=== PATIENT | female | born 1980 | race Caucasian/White ===

== ENCOUNTER → 2020-10-02 | Outpatient (CLI) | payer OTHER ==
--- NOTE | 2020-10-07 02:11 | ECWPNPC ---
PATIENT NAME: YULISA DUQUE : 1980 GENDER: FEMALE VISIT DATE: 10/02/2020 DISCHARGE DATE: 10/02/20 1600 VISIT LOCKED DATE TIME: PHYSICIAN: LIEN SMITH MD RESOURCE: LIEN SMITH MD REASON FOR APPOINTMENT 1. PRESEDATE FOR SPINAL TAP HISTORY OF PRESENT ILLNESS DEPRESSION SCREENING: PHQ-2 (2015 EDITION) LITTLE INTEREST OR PLEASURE IN DOING THINGS?NOT AT ALL FEELING DOWN, DEPRESSED, OR HOPELESS?NOT AT ALL TOTAL SCORE0 GENERAL: 40-YEAR-OLD FEMALE PATIENT WITH A HISTORY OF SOME HEADACHES. THE PATIENT IS FOLLOWED BY DR. MAGALLANES. THE PATIENT IS HAVING SENSATIONS OVER HER EARS AND HEADACHES. THE PATIENT HAS HAD THIS CONDITION FOR A YEAR AND THE CONDITION PERSISTS. THEY WANT TO RULE OUT PSEUDOTUMOR. SHE IS HERE TO CONSIDER A SPINAL TAP. FALL RISK SCREENING: SCREENING : NO FALLS REPORTED IN THE LAST YEAR. PAIN SCREENING: PATIENT HAS A COMPLAINT OF ACUTE OR CHRONIC PAIN :YES LOCATION OF PAIN:HEAD, LOW BACK INTENSITY OF PAIN (SCALE OF 1 TO 10): HEAD 4/10 BACK 3/10 WHAT DOES YOUR PAIN FEEL LIKE:SHARP, OTHER PRESSURE DURATION:CONTINOUS PAIN IS INCREASED BY:ACTIVITIES STAIRS, LIGHT, NECK MOVEMENT PAIN IS DECREASED BY:OTHERS MUSIC NURSING NOTE: -. PAIN CENTER INTAKE QUESTIONS: DO YOU HAVE A HISTORY OF MRSA? :NO DO YOU TAKE A BLOOD THINNERS? :NO DO YOU HAVE ANY BLEEDING DISORDERS? :NO ANY NEW NUMBNESS OR WEAKNESS IN YOUR LEGS OR ARMS? :YES RIGHT 5TH TOE NUMBNESS FOR PAST 3-4 WEEKS, STATES ALSO HAS PARTIAL NUMBNESS IN BOTH FEET DUE TO NEUROPATHY ANY PACEMAKER,DEFIBRILLATOR, OR DORSAL COLUMN STIMULATOR? :NO DO YOU HAVE ANY RASHES OR OPEN SORES? :NO DOES HAVE A MOSTLY HEALED LESION ON ABDOMEN - RECENTLY FINISHED COURSE OF ANTIBIOTICS; ALSO HAS ROSACEA ARE YOU ALLERGIC TO IV DYE? :NO ARE YOU DIABETIC? :YES ANY NEW PROBLEMS WITH YOUR MEDICATIONS? :NO HAVE YOU RECEIVED A VACCINE IN THE PAST 30 DAYS? :NO DO YOU PLAN TO RECEIVE A VACCINE IN THE NEXT 21 DAYS? :NO DO YOU NEED ANY PRESCRIPTION? :NO DO YOU TAKE ANY IMMUNOSUPPRESSIVE MEDICATIONS? :YES PLAQUENIL FOR LUPUS, METHOTREXATE FOR PSORIATIC ARTHRITIS DO YOU HAVE ANY KIDNEY OR LIVER DISEASE? :YES FREQUENT KIDNEY STONES IS THERE A CHANCE YOU COULD BE ? :NO ARE YOU BREAST FEEDING? :NO CURRENT MEDICATIONS TAKING GLIPIZIDE 10 MG TABLET TAKE ONE TABLET BY MOUTH 30 MINUTES BEFORE BREAKFAST ORAL TAKING ACETAZOLAMIDE 250 MG TABLET TAKE TWO TABLETS BY MOUTH TWICE A DAY ORAL TAKING TRULICITY 1.5 MG/0.5ML SOLUTION PEN-INJECTOR INJECT 1.5MG 1 PEN SUBCUTANEOUSLY ONCE WEEKLY SUBCUTANEOUS TAKING ARTIFICIAL TEARS 1.4 % SOLUTION INSTILL 1 DROP IN EACH EYE ONCE DAILY TO TWO TIMES A DAY OPHTHALMIC TAKING FLUOXETINE HCL 10 MG CAPSULE TAKE ONE CAPSULE BY MOUTH EVERY OTHER DAY ORAL TAKING METRONIDAZOLE 0.75 % GEL APPLY TOPICALLY TO FACE ONCE DAILY EXTERNAL TAKING BUPROPION HCL ER (XL) 150 MG TABLET EXTENDED RELEASE 24 HOUR TAKE ONE TABLET BY MOUTH ONCE DAILY ORAL TAKING FOLIC ACID 1 MG TABLET TAKE THREE TABLETS BY MOUTH EVERY DAY ORAL TAKING GABAPENTIN 600 MG TABLET TAKE ONE TABLET BY MOUTH FOUR TIMES A DAY ORAL TAKING PRAZOSIN HCL 1 MG CAPSULE TAKE ONE CAPSULE BY MOUTH EVERY MORNING AND 1 CAP AT NOON AND 1 TO 2 CAPSULES AT NIGHT ORAL TAKING METHOTREXATE SODIUM 2.5 MG TABLET TAKE TEN TABLETS BY MOUTH ONCE WEEKLY ORAL TAKING HYDROXYCHLOROQUINE SULFATE 200 MG TABLET TAKE ONE TABLET BY MOUTH TWICE A DAY WITH FOOD OR MILK ORAL TAKING INDAPAMIDE 1.25 MG TABLET 1 TABLET IN THE MORNING ORALLY ONCE A DAY TAKING POTASSIUM CHLORIDE KATIE CR 8 MEQ ORAL DAILY MEDICATION LIST REVIEWED AND RECONCILED WITH THE PATIENT PAST MEDICAL HISTORY LUPUS PSORIATIC ARTHRITIS DIABETES SEIZURES A CHILD HEADACHES VITAMIN B12 DEFICIENCY ANXIETY DEPRESSION BIPOLAR DISORDER KIDNEY STONES ALLERGIES BACTRIM: RASH - ALLERGY CEFACLOR: RASH SULFA SURGICAL HISTORY X 3 CHOLECYSTECTOMY TONSILLECTOMY HERNIA REPAIR CONE BIOPSY TUBAL LIGATION UTERINE ABLATION KIDNEY STENT PLACEMENT FAMILY HISTORY FATHER: ALIVE, DIAGNOSED WITH HYPERTENSION, DIABETES MOTHER: ALIVE SIBLINGS: ALIVE, HYPERTENSION SOCIAL HISTORY GENERAL: TOBACCO USE ARE YOU A:FORMER SMOKER LATEX QUESTIONNAIRE DATE ASKED : 10/02/2020 ALCOHOL USE: YES, 1-2 DRINKS PER MONTH. ALCOHOL SCREENING DID YOU HAVE A DRINK CONTAINING ALCOHOL IN THE PAST YEAR?YES HOW OFTEN DID YOU HAVE A DRINK CONTAINING ALCOHOL IN THE PAST YEAR?MONTHLY OR LESS (1 POINT) HOW MANY DRINKS DID YOU HAVE ON A TYPICAL DAY WHEN YOU WERE DRINKING IN THE PAST YEAR?1 OR 2 (0 POINTS) HOW OFTEN DID YOU HAVE SIX OR MORE DRINKS ON ONE OCCASION IN THE PAST YEAR?NEVER (0 POINTS) POINTS1 INTERPRETATIONNEGATIVE RECREATIONAL DRUG USE DRUG USE?NO MARIJUANA IN PAST - NONE IN 6 YEARS LEARNING BARRIERS / SPECIAL NEEDS BARRIERS TO LEARNING?NO HEARING IMPAIRED?YES DIFFICULTY HEARING LOW TONES VISION IMPAIRED?YES :CORRECTIVE LENSES COGNITIVELY IMPAIRED?NO READINESS TO LEARN?YES LEARNING PREFERENCES?NO LEARNING CAPABILITIES PRESENT?YES EMOTIONAL BARRIERS?NO SPECIAL DEVICES?NO RELIGIOUS LEADER NEEDED?NO OCCUPATION: [employer]. - HAS THE PATIENT BEEN EDUCATED REGARDING HIS/HER PLAN OF CARE?YES HAS THE PATIENT BEEN EDUCATED REGARDING PAIN, THE RISK FOR PAIN, THE IMPORTANCE OF EFFECTIVE PAIN MANAGEMENT, AND THE PAIN ASSESSMENT PROCESS?YES HOSPITALIZATION/MAJOR DIAGNOSTIC PROCEDURE KIDNEY STONE/STENT 2019 C-SECTIONS X 3/TUBAL LIGATION REVIEW OF SYSTEMS GLAUCOMA: NOTHYROID DISEASE: SMALL NODULES THAT ARE FOLLOWEDHYPERTENSION: NOHEART DISEASE: NOLUNG DISEASE: NODIABETES: YESGI DISEASE: NO LIVER DISEASE: NO KIDNEY DISEASE: KIDNEY STONESSTERIOD USE: NONEUROLOGICAL DISEASE: HISTORY OF SEIZURES A CHILDBACK PROBLEMS: YES, PAINEXTREMITIES: NEUROPATHY GENITOURINARY: NOBLEEDING DISORDER: NOASA CLASS: [id number] CLASS: II. VITAL SIGNS WT 230.8 LBS, HT 65 IN, BMI 38.40 INDEX, BP 126/84 MM HG, HR 96 /MIN, RR 18 /MIN, TEMP 98.0 F, OXYGEN SAT % 95%, SAFE IN ENV? (Y/N) YES, NA INITIALS LA 14:45REVIEWED. Taj MERRITT RN 10/02/20 1538. EXAMINATION GENERAL EXAMINATION: THE PATIENT IS ALERT, ORIENTED TIMES THREE AND COOPERATIVE. LUNGS ARE CLEAR TO AUSCULTATION. HEART SHOWS REGULAR RHYTHM, NO MURMURS AND NO GALLOPS. LEGS SEEM TO BE WEAK ON FLEXION AND EXTENSION. STRAIGHT LEG RAISE IS POSITIVE FOR RADICULOPAHTY IN BOTH LEGS. ASSESSMENTS PSEUDOTUMOR - G93.2 (PRIMARY), QUESTIONABLE TREATMENT PSEUDOTUMOR OXYGEN AT 2 LITERS PER NASAL CANNULA (ORDERED FOR 11/02/2020) IV LACTATED RINGER'S WIDE OPEN (ORDERED FOR 11/02/2020) MED: VERSED 1MG IV MIDAZOLAM (ORDERED FOR 11/02/2020) MED: PAIN BENADRYL 25MG IV DIPHENHYDRAMINE (ORDERED FOR 11/02/2020) MEDICATION: FENTANYL CITRATE 25MCG IV (ORDERED FOR 11/02/2020) CLINICAL NOTES: I DISCUSSED ALTERNATIVES WITH MS. DUQUE. WE AGREE ON PERFORMING A SPINAL TAP WITH IV SEDATION DUE TO ANXIETY AND DISCOMFORT ASSOCIATED WITH THE PROCEDURE. THE PATIENT REPORTS UNDERSTANDING AND AGREES WITH THE PLAN. I, ISSAC MEJIAS, DOCUMENTED THE ABOVE INFORMATION ACTING A SCRIBE FOR DR. SMITH. I HAVE REVIEWED THE ABOVE DOCUMENT, WRITTEN BY ISSAC MEJIAS, CUTTER OPERATOR, AND I VERIFY THAT IT IS ACCURATE. OTHERS NOTES: PRE PROCEDURE INSTRUCTIONS AND SPINAL TAP PROCEDURE INFORMATION PRINTED AND GIVEN TO PATIENT. PATIENT VERBALIZES UNDERSTANDING OF PRE PROCEDURE INFORAMTION REVIEWED. PROCEDURE CODES FA211 ESTABILISHED PATIENT [facility] CHARGE [id number] OFFICE/OUTPATIENT VISIT EST DISPOSITION & COMMUNICATION FOLLOW UP OKAY TO BOOK (REASON: SPINAL TAP) ELECTRONICALLY SIGNED BY LIEN SMITH MD, MD ON 10/06/2020 AT 05:21 PM EDT DISCLAIMER : THIS IS A VISIT SUMMARY EXTRACTED FROM THE [employer] CHART. IT IS NOT A COPY OF THE [employer] PROGRESS NOTE. KLEVER
== END ==
LOC: M PAIN 14:45
PROVIDERS: ATTEND Anesthesiology
DX: G93.2 Benign intracranial hypertension (principal); E11.9 Type 2 diabetes mellitus without complications; Z86.59 Personal history of other mental and behavioral disorders; Z87.891 Personal history of nicotine dependence; Z88.1 Allergy status to other antibiotic agents; Z88.2 Allergy status to sulfonamides; Z79.84 Long term (current) use of oral hypoglycemic drugs; Z79.899 Other long term (current) drug therapy

== ENCOUNTER → 2020-10-14 | Outpatient (CLI) | payer OTHER | LOC: M LABSMTC 10:54 | PROVIDERS: ATTEND Anesthesiology | DX: Z20.828 Contact with and (suspected) exposure to other viral communicable diseases (principal) ==

== ENCOUNTER → 2020-10-19 | Outpatient (CLI) | payer OTHER ==
[~2020-10-19] MED LIST: LIDOCAINE 1% SDV 30ML VIAL As Ordered ONE; MIDAZOLAM INJ 2MG/2ML VIAL (J2250 PER 1MG) As Ordered ONE; diphenhydrAMINE 50MG/ML VIAL (J1200) As Ordered ONE; fentaNYL 100 MCG/2 ML INJECTION (J3010) As Ordered ONE
[2020-10-19 15:08] LABS: APPEARANCE, CSF CLEAR (CLEAR); COLOR, CSF COLORLESS (COLORLESS); CSF TUBE# CELL CNT TUBE 3
[2020-10-19 15:23] LABS: CSF TUBE# GLU TUBE 1; CSF TUBE# TP TUBE 1; GLUCOSE CSF 61 MG/DL (40-75); TOTAL PROTEIN,CSF 29 MG/DL (15-45)
--- NOTE | 2020-10-21 01:51 | ECWPNPC ---
PATIENT NAME: YULISA DUQUE : 1980 GENDER: FEMALE VISIT DATE: 10/19/2020 DISCHARGE DATE: 10/19/20 1422 VISIT LOCKED DATE TIME: PHYSICIAN: LIEN SMITH MD RESOURCE: LIEN SMITH MD REASON FOR APPOINTMENT 1. SPINAL TAP HISTORY OF PRESENT ILLNESS GENERAL: -. FALL RISK SCREENING: SCREENING : NO FALLS REPORTED IN THE LAST YEAR. PAIN SCREENING: PATIENT HAS A COMPLAINT OF ACUTE OR CHRONIC PAIN :YES LOCATION OF PAIN:HEAD INTENSITY OF PAIN (SCALE OF 1 TO 10):2 WHAT DOES YOUR PAIN FEEL LIKE:THROBBING DURATION:INTERMITTENT NURSING NOTE: PRIOR TO TAKING PATIENT INTO PROCEDURE ROOM, STREAKING NOTED TO RIGHT ARM. SALINE LOCK IN RIGHT HAND DISCONTINUED, IV CATHETER TIP INTACT, BLEEDING CONTROLLED, DSD APPLIED, PICTURES TAKEN WELL. SOME REDENESS NOTED ABOVE IV PUNCTURE SITE. REDNESS AND STREAKING APPEARD TO SUBSIDE PRIOR TO PATIENT LEAVING FCILITY, PATIENT WILL CONTINUE TO MONITOR. SALINE LOCK ESTABLISHED IN LEFT HAND BY Chris KEATING RN ON FIRST ATTEMPT, POSITIVE FLASH, POSIIVE BLOOD RETURN, NO S/S OF INFILTRATION. LR INFUSING AT THIS TIME, PATIENT TOLERATED PROCEDURE WELL. Radha TY RN BSN. PAIN CENTER INTAKE QUESTIONS: DO YOU HAVE A HISTORY OF MRSA? :NO DO YOU TAKE A BLOOD THINNERS? :NO DO YOU HAVE ANY BLEEDING DISORDERS? :NO ANY NEW NUMBNESS OR WEAKNESS IN YOUR LEGS OR ARMS? :YES RIGHT 5TH TOE NUMBNESS FOR PAST 3-4 WEEKS, STATES ALSO HAS PARTIAL NUMBNESS IN BOTH FEET DUE TO NEUROPATHY. ANY PACEMAKER,DEFIBRILLATOR, OR DORSAL COLUMN STIMULATOR? :NO DO YOU HAVE ANY RASHES OR OPEN SORES? :NO BLACK FLY BITES ON LEGS AND ARMS ARE YOU ALLERGIC TO IV DYE? :NO ARE YOU DIABETIC? :YES FSBS: DID NOT TAKE, COULD NOT FIND TEST STUFF ANY NEW PROBLEMS WITH YOUR MEDICATIONS? :NO HAVE YOU RECEIVED A VACCINE IN THE PAST 30 DAYS? :NO DO YOU PLAN TO RECEIVE A VACCINE IN THE NEXT 21 DAYS? :NO DO YOU NEED ANY PRESCRIPTION? :NO DO YOU TAKE ANY IMMUNOSUPPRESSIVE MEDICATIONS? :YES PLAQUENIL FOR LUPUS, METHOTREXATE FOR PSORIATIC ARTHRITIS ANY HISTORY OF SEIZURES? :YES REMOTE H/O A CHILD "FEBRILE SEIZURES" ANY HISTORY OF CARDIAC ISSUES OR EVENTS? :NO DO YOU HAVE ANY KIDNEY OR LIVER DISEASE? :YES FREQUENT KIDNEY STONES DO YOU HAVE SLEEP APNEA? :NO ANY RECENT HEAD INJURY? :NO DO YOU HAVE ANY NEW INFECTIONS? :NO IS THERE A CHANCE YOU COULD BE ? :NO ARE YOU BREAST FEEDING? :NO WHEN DID YOU LAST EAT? : 10/18/202229 WHEN DID YOU LAST DRINK? : 914 WHAT DID YOU LAST DRINK? : WATER NAME OF PERSON DRIVING YOU HOME? : LUNA DO YOU HAVE ANY OTHER QUESTIONS OR CONCERNS? : NO CURRENT MEDICATIONS TAKING GLIPIZIDE 10 MG TABLET TAKE ONE TABLET BY MOUTH 30 MINUTES BEFORE BREAKFAST ORAL , NOTES: 10/18/20 0800 TAKING ACETAZOLAMIDE 250 MG TABLET TAKE TWO TABLETS BY MOUTH TWICE A DAY ORAL TAKING TRULICITY 1.5 MG/0.5ML SOLUTION PEN-INJECTOR INJECT 1.5MG 1 PEN SUBCUTANEOUSLY ONCE WEEKLY SUBCUTANEOUS , NOTES: SUNDAY 10/15 TAKING ARTIFICIAL TEARS 1.4 % SOLUTION INSTILL 1 DROP IN EACH EYE ONCE DAILY TO TWO TIMES A DAY OPHTHALMIC TAKING FLUOXETINE HCL 10 MG CAPSULE TAKE ONE CAPSULE BY MOUTH EVERY OTHER DAY ORAL TAKING METRONIDAZOLE 0.75 % GEL APPLY TOPICALLY TO FACE ONCE DAILY EXTERNAL TAKING BUPROPION HCL ER (XL) 150 MG TABLET EXTENDED RELEASE 24 HOUR TAKE ONE TABLET BY MOUTH ONCE DAILY ORAL TAKING FOLIC ACID 1 MG TABLET TAKE THREE TABLETS BY MOUTH EVERY DAY ORAL TAKING GABAPENTIN 600 MG TABLET TAKE ONE TABLET BY MOUTH FOUR TIMES A DAY ORAL , NOTES: 09 TAKING PRAZOSIN HCL 1 MG CAPSULE TAKE ONE CAPSULE BY MOUTH EVERY MORNING AND 1 CAP AT NOON AND 1 TO 2 CAPSULES AT NIGHT ORAL TAKING METHOTREXATE SODIUM 2.5 MG TABLET TAKE TEN TABLETS BY MOUTH ONCE WEEKLY ORAL , NOTES: MONDAY 10/09 TAKING HYDROXYCHLOROQUINE SULFATE 200 MG TABLET TAKE ONE TABLET BY MOUTH TWICE A DAY WITH FOOD OR MILK ORAL , NOTES: 09 TAKING INDAPAMIDE 1.25 MG TABLET 1 TABLET IN THE MORNING ORALLY ONCE A DAY, NOTES: 09 TAKING POTASSIUM CHLORIDE KATIE CR 8 MEQ ORAL DAILY TAKING ALLOPURINOL 100 MG TABLET 1 TABLET ORALLY ONCE A DAY, NOTES: 09 MEDICATION LIST REVIEWED AND RECONCILED WITH THE PATIENT PAST MEDICAL HISTORY LUPUS PSORIATIC ARTHRITIS DIABETES SEIZURES A CHILD HEADACHES VITAMIN B12 DEFICIENCY ANXIETY DEPRESSION BIPOLAR DISORDER KIDNEY STONES ALLERGIES BACTRIM: RASH - ALLERGY CEFACLOR: RASH - ALLERGY SULFA: RASH - ALLERGY SURGICAL HISTORY X 3 CHOLECYSTECTOMY TONSILLECTOMY HERNIA REPAIR CONE BIOPSY TUBAL LIGATION UTERINE ABLATION KIDNEY STENT PLACEMENT SOCIAL HISTORY GENERAL: TOBACCO USE ARE YOU A:FORMER SMOKER LATEX QUESTIONNAIRE LATEX ALLERGY : HAVE YOU EVER DEVELOPED ANY TYPE OF REACTION AFTER HANDLING LATEX PRODUCTS SUCH RUBBER GLOVES, CONDOMS, DIAPHRAGMS, BALLOONS, SOCKS, OR UNDERWEAR?NO LATEX ALLERGY : HAVE YOU EVER DEVELOPED ANY TYPE OF REACTION DURING OR AFTER DENTAL APPOINTMENT, VAGINAL/RECTAL EXAMINATION, SURGICAL PROCEDURE, OR ANY OTHER EXPOSURE?NO LATEX RISK : HAVE YOU EVER HAD ANY DIFFICULTY BREATHING OR HIVES AFTER EATING OR HANDLING ANY FRUITS, OR VEGETABLES; SUCH KIWI, BANANAS, STONE FRUITS, OR CHESTNUTSNO LATEX RISK : DO YOU HAVE A PREVIOUS PERSONAL HISTORY OF MORE THAN NINE SURGERIES, SPINA BIFIDA, OR REPEATED CATHERIZATIONS? NO LATEX RISK : ARE YOU FREQUENTLY EXPOSED TO LATEX PRODUCTS IN YOUR OCCUPATION?YES DATE ASKED : 10/16/2020 ALCOHOL USE: YES, 1-2 DRINKS PER MONTH. ALCOHOL SCREENING DID YOU HAVE A DRINK CONTAINING ALCOHOL IN THE PAST YEAR?YES HOW OFTEN DID YOU HAVE SIX OR MORE DRINKS ON ONE OCCASION IN THE PAST YEAR?NEVER (0 POINTS) HOW MANY DRINKS DID YOU HAVE ON A TYPICAL DAY WHEN YOU WERE DRINKING IN THE PAST YEAR?1 OR 2 (0 POINTS) HOW OFTEN DID YOU HAVE A DRINK CONTAINING ALCOHOL IN THE PAST YEAR?MONTHLY OR LESS (1 POINT) POINTS1 INTERPRETATIONNEGATIVE RECREATIONAL DRUG USE DRUG USE?NO MARIJUANA IN PAST - NONE IN 6 YEARS LEARNING BARRIERS / SPECIAL NEEDS BARRIERS TO LEARNING?NO HEARING IMPAIRED?YES DIFFICULTY HEARING LOW TONES VISION IMPAIRED?YES :CORRECTIVE LENSES COGNITIVELY IMPAIRED?NO READINESS TO LEARN?YES LEARNING PREFERENCES?NO LEARNING CAPABILITIES PRESENT?YES EMOTIONAL BARRIERS?NO SPECIAL DEVICES?NO CANOE INSPECTOR NEEDED?NO OCCUPATION: [employer]. - HAS THE PATIENT BEEN EDUCATED REGARDING HIS/HER PLAN OF CARE?YES HAS THE PATIENT BEEN EDUCATED REGARDING PAIN, THE RISK FOR PAIN, THE IMPORTANCE OF EFFECTIVE PAIN MANAGEMENT, AND THE PAIN ASSESSMENT PROCESS?YES HOSPITALIZATION/MAJOR DIAGNOSTIC PROCEDURE KIDNEY STONE/STENT 2019 C-SECTIONS X 3/TUBAL LIGATION VITAL SIGNS WT 227.8 LBS, HT 65 IN, BMI 37.90 INDEX, BP 144/78 MM HG, HR 78 /MIN, RR 18 /MIN, TEMP 97.6 F, OXYGEN SAT % 98%, SAFE IN ENV? (Y/N) YES, NA INITIALS NM 11:17, REVIEWED BY: Grant HERNÁNDEZ RN. EXAMINATION GENERAL: A HISTORY AND PHYSICAL EXAM ON THE PATIENT WAS DONE ON 10/02/2020 (DATE OF ORIGINAL ASSESSMENT) IN PREPARATION OF SURGERY/PROCEDURE. I HAVE NOW REASSESSED THIS PATIENT'S HEALTH STATUS AND PERFORMED AN UPDATED EXAM TODAY. ALL CHANGES IN THE PATIENT'S HISTORY, PHYSICAL EXAM, PRE-EXISTING CONDITONS, AND INDICATIONS/CONTRAINDICATIONS TO THE PLANNED PROCEDURE AND ANESTHESIA ARE DOCUMENTED AND EVALUATED BELOW. I ATTEST TO THE ADEQUACY AND APPROPRIATENESS OF MY ASSESSMENT, AND CONFIRM THE NECESSITY FOR THE PLANNED PROCEDURE. THE PATIENT IS ALERT, ORIENTED TIMES THREE AND COOPERATIVE. LUNGS ARE CLEAR TO AUSCULTATION. HEART SHOWS REGULAR RHYTHM, NO MURMURS AND NO GALLOPS. ASSESSMENTS PSEUDOTUMOR - G93.2 (PRIMARY), QUESTIONABLE TREATMENT PSEUDOTUMOR MEDICATION: FENTANYL CITRATE 50MCG IV LYUDMILA TY 10/19/2020 2:22:04 PM > 50MCGS GIVEN AT 1336. COMPLETION OF PROCEDURAL VISIT WHEN MEETS CRITERIATOM GILLETTE 10/19/2020 2:32:19 PM > CRITERIA MET AT 1414 MEDICATION: FENTANYL CITRATE 25MCG IVSYXOCHITL GRAFF 10/19/2020 12:52:20 PM > VERIFIED. SYLVERXOCHITL 10/19/2020 12:52:20 PM > VERIFIED. SONAL MEJIASISTAL 10/19/2020 1:56:42 PM > ORDER CANCELED MED: VERSED 1MG IV MIDAZOLAMXOCHITL HERNÁNDEZ 10/19/2020 12:52:33 PM > VERIFIED. SONAL MEJIASISTAL 10/19/2020 1:39:10 PM > SECOND DOSE ORDERED, VERIFIED WITH LYUDMILA COCHRAN 10/19/2020 2:21:01 PM > FIRST DOSE OF 1MG GIVEN AT 1335. SECOND DOSE OF 1MG GIVEN AT 1339. TOTAL OF 2MG GIVEN DURING THIS PROCEDURE. OXYGEN AT 2 LITERS PER NASAL CANNULATOM GILLETTE 10/19/2020 1:24:31 PM > 1323 O2 ADMINISTERED TOM LOBATO 10/19/2020 1:59:50 PM > OFF AT 1355 TBRADLEYRN IV LACTATED RINGER'S WIDE OPENDEVIURIEL WHITE 10/19/2020 12:18:01 PM > IV STARTED ON 1ST ATTEMPT WITH #20G IN RIGHT HAND WITHOUT INCIDENT. RL INFUSING WIDE OPEN WITHOUT REDNESS OR SWELLING. PT. TOLERATED WELL. MED: PAIN BENADRYL 25MG IV DIPHENHYDRAMINETHLYUDMILA ORTEGA 10/19/2020 12:47:29 PM > VERIFIED. LETA, 10/19/2020 12:52:47 PM > ADMINISTERED OTHERS NOTES: 10/16/20 1435 PAT COMPLETEDWilbert TY COLLEGE ADMINISTRATOR. PROCEDURES PAIN NURSING RECORD PROCEDURE IN ROOM 1320, PHYSICIAN IN ROOM 1330, START 1341, FINISH 1351, PHYSICIAN OUT OF ROOM 1355, OUT OF ROOM 1400, ECG NORMAL SINUS, PATIENT SHIELDED N/A, SAFETY STRAP N/A, PREP BETADINE, DRESSING TEGADERM DR. SMITH LOC: IN ROOM 1320, PHYSICIAN IN ROOM 1330, START 1341, FINISH 1351, PHYSICIAN OUT OF ROOM 1355, OUT OF ROOM 1400, ECG NORMAL SINUS, PATIENT SHIELDED N/A, SAFETY STRAP N/A, PREP BETADINE, DRESSING TEGADERM DR. SMITH RESP: 1. ALERT, ORIENTED LETA,[facility] 10/19/2020 1:27:30 PM > COLOR: 1. PINK LETA,[facility] 10/19/2020 1:27:39 PM > SKIN: 1. WARM, DRY LETA,[facility] 10/19/2020 1:27:44 PM > POSITION: 3. LATERAL LETA,[facility] 10/19/2020 1:27:54 PM > VITALS: HR78, 97%, 118/69 2L O2 LETA,[facility] 10/19/2020 1:37:33 PM > HR79, 96%, 119/72 2L [id number],[facility] 10/19/2020 1:42:01 PM > HR77, 93%, 115/69 2L [id number],[facility] 10/19/2020 1:47:40 PM > HR79, 96%, 111/67 2L [id number],[facility] 10/19/2020 1:52:59 PM > HR75, 93%, 106/55 LETA,[facility] 10/19/2020 1:57:53 PM > EXIT VITALS HR 89, 96%, 128/77, R14, PAIN 0/10 LETA,[facility] 10/19/2020 2:14:04 PM > AMBER GILLETTE RN COMPLETION OF PROCEDURE APPOINTMENT: POST PAIN 0, DRESSING SITE DRY AND INTACT, IV DISCONTINUED, SITE CLEAR, CATHETER INTACT, GAIT STEADY, TEACHING COMPLETED, PATIENT ACKNOWLEDGES UNDERSTANDING YES, PROCEDURE APPOINTMENT COMPLETED AT 1414 : PATIENT TAKEN TO VEHICLE WITH HER SISTER BY WHEELCHAIR @ 1420 PRE PROCEDURE DIAGNOSIS NEUROLOGICAL SYMPTOMS, QUESTIONABLE PSEUDOTUMOR CEREBRI POST PROCEDURE DIAGNOSIS NEUROLOGICAL SYMPTOMS, QUESTIONABLE PSEUDOTUMOR CEREBRI PROCEDURE SPINAL TAP PRE PROCEDURE NOTE THE PATIENT HAS A HISTORY OF NEUROLOGICAL SYMPTOMS. THE PATIENT WAS REFERRED HERE BY DR. MAGALLANES FOR A SPINAL TAP TO RULE OUT PSEUDOTUMOR. THE PATIENT WAS INTERVIEWED, EXAMINED AND TREATMENT QUESTIONNAIRES REVIEWED. THE PROCEDURE, RISKS AND BENEFITS WERE DISCUSSED WITH THE PATIENT. I DISCUSSED WITH THE PATIENT THAT I WILL NOT RECEIVE THE RESULTS FROM THIS TEST AND THAT THEY WILL HAVE TO FOLLOW UP WITH DR. MAGALLANES FOR THE RESULTS. THE PATIENT WOULD LIKE TO MOVE FORWARD WITH IV SEDATION DUE TO ANXIETY AND DISCOMFORT ASSOCIATED WITH THE PROCEDURE. THE PATIENT DENIES UNEXPLAINABLE, WEIGHT LOSS, FEVER, CHILLS, OR CHANGES IN URINARY OR BOWEL CONTROL. THE PATIENT IS COVID-19 NEGATIVE DESCRIPTION OF PROCEDURE AFTER CONSENT WAS TAKEN, THE PATIENT WAS BROUGHT TO THE PROCEDURE ROOM AND PLACED IN THE LEFT LATERAL POSITION. THE LUMBOSACRAL AREA WAS CLEANED WITH BETADINE SOLUTION AND DRAPED ASEPTICALLY. THE PROCEDURE WAS DONE UNDER STERILE CONDITIONS. A TIMEOUT WAS PERFORMED WHERE THE CONSENTED SITE WAS VERIFIED WITH EVERYONE IN THE ROOM. LOCAL INFILTRATE 1% LIDOCAINE WAS USED TO NUMB THE SKIN AND SUBCUTANEOUS TISSUE BELOW IT AT THE APPROXIMATELY THE L4-L5 INTERSPACE. A 22-GAUGE QUINCKE NEEDLE WAS ADVANCED UNTIL THE DURA WAS FELT AND CSF WAS FREE-FLOWING. THERE WAS NO BLOOD RETURN ENCOUNTERED. NO PARESTHESIA WAS ENCOUNTERED. OPENING PRESSURE WAS MEASURED AT 23 CM OF WATER. 4 VIALS OF 3 ML OF CSF WAS COLLECTED. CSF WAS CLEAR. CSF WAS SENT FOR STUDIES ORDERED BY THE REFERRING PHYSICIAN. VITAL SIGNS WERE STABLE. THERE WERE NO COMPLICATIONS. ESTIMATED BLOOD LOSS WAS LESS THAN 5 ML. THE PATIENT WAS SENT TO THE RECOVERY ROOM, MOVING THE EXTREMITIES AND DOING WELL. THE PATIENT RECEIVED VERSED 2 MG AND FENTANYL 50 MCG AND BENADRYL 25 MG IV IN DIVIDED DOSES. FACE TO FACE START TIME: 1335 FACE TO FACE END TIME: 1355 TOTAL FACE TO FACE TIME: 20 MINUTES. POST PROCEDURE NOTE I DISCUSSED THE PROCEDURE WITH THE PATIENT. I WILL SEND THE CSF FOR STUDIES. THE PATIENT WILL FOLLOW UP WITH DR. MAGALLANES. THE PATIENT WILL CALL OUR OFFICE NEEDED. I, ISSAC MEJIAS, DOCUMENTED THE ABOVE INFORMATION ACTING A SCRIBE FOR DR. SMITH. I HAVE REVIEWED THE ABOVE DOCUMENT, WRITTEN BY ISSAC MEJIAS, JAYSONIBE, AND I VERIFY THAT IT IS ACCURATE. PROCEDURE CODES 74165 MOD SED SAME PHYS/QHP 5/>YRS 89647 LUMBAR PUNCTURE DISPOSITION & COMMUNICATION FOLLOW UP FOLLOW UP WITH NEUROLOGIST (REASON: CALL OUR OFFICE IF NEEDED) ELECTRONICALLY SIGNED BY LIEN SMITH MD, MD ON 10/20/2020 AT 04:25 PM EDT DISCLAIMER : THIS IS A VISIT SUMMARY EXTRACTED FROM THE [employer] CHART. IT IS NOT A COPY OF THE [employer] PROGRESS NOTE. KLEVER
== END ==
LOC: M PAIN 11:40
PROVIDERS: ATTEND Anesthesiology
DX: G93.2 Benign intracranial hypertension (principal); E11.9 Type 2 diabetes mellitus without complications; Z86.59 Personal history of other mental and behavioral disorders; Z87.891 Personal history of nicotine dependence; Z88.1 Allergy status to other antibiotic agents; Z88.2 Allergy status to sulfonamides; Z79.84 Long term (current) use of oral hypoglycemic drugs; Z79.899 Other long term (current) drug therapy
CPT/HCPCS: 36415; 62270; 82784; 82945; 83916; 84157; 87070; 87102; 87205; 87252; 87483; 88108; 88313; 89050; 99152; J1200; J2250; J3010